=== PATIENT | male | born 1940 | race Caucasian/White ===

== ENCOUNTER 2017-10-25 11:16 | Inpatient (IN) | payer MEDICARE, BC ==
[~2017-10-25] VITALS: Ht 180.3 cm; Wt 88.2 kg
--- NOTE | ~2017-10-25 | OP ---
PATIENT NAME: KEN PEÑALOZA MEDICAL RECORD: [id number] :40 LOCATION:[place] D.CV08 ADMISSION DATE:10/25/17 SURGEON: PAUL WILLIAM MD DATE OF OPERATION: 10/30/2017 SURGEON: Paul William MD ANESTHESIA: General endotracheal, Dashawn Rocha MD OPERATION PERFORMED: Coronary artery bypass; 1. Left internal thoracic to left anterior descending. 2. Reverse saphenous vein graft to the obtuse marginal coronary artery. PREOPERATIVE DIAGNOSIS: Cardiac arrest secondary to atherosclerosis of the coronary arteries. POSTOPERATIVE DIAGNOSIS: Cardiac arrest secondary to atherosclerosis of the coronary arteries. INDICATION FOR OPERATION: Severe occlusive coronary artery disease with cardiac arrest. FINDINGS OF THE OPERATION: The right greater saphenous vein graft in the thigh was of excellent quality for grafting as was the left internal thoracic artery. The target vessels were also of good caliber. ESTIMATED BLOOD LOSS: Cell Saver was used. DESCRIPTION OF PROCEDURE: After informed consent, adequate preoperative medication, and evaluation, the patient was brought to the operating room and placed on the table in supine position. After induction of general endotracheal anesthesia and application of appropriate monitoring devices, the chest, neck, abdomen, and both legs were prepped and draped in sterile field utilizing Betadine scrub, alcohol, and Betadine solution. Betadine-impregnated drape was also used. Saphenous vein was harvested from right leg and prepared for reverse saphenous vein grafting. Leg was closed over drains utilizing 3-0 Vicryl and skin renetta. A median sternotomy incision was used and dissection was carried down to the fascia. Hemostasis was maintained with electrocautery. Sternum was divided. Innominate vein was identified and protected. Left internal thoracic was taken down and prepared for grafting. The patient was given a calculated dose of heparin, cannulated in standard fashion utilizing one aortic and one two-stage cannula in atrium and inferior vena cava. The patient was then placed on cardiopulmonary bypass and cooled to 32 degrees centigrade. A crossclamp was placed just proximal to the aortic cannula. The patient was given cardioplegic solution through the aortic root. The patient was given cold induction and cold maintenance; and given cold intermittent cardioplegic solution throughout the procedure, either through the grafts, the root, or combination of both. The first vessel to be grafted was obtuse marginal. It was grafted end-to-side utilizing a running 7-0 Prolene suture. Graft was measured back to the aorta and a proximal anastomosis was fashioned utilizing running 6-0 Prolene suture. Next, left internal thoracic was brought the hole in pericardium, sutured to left anterior descending end-to-side utilizing a running 8-0 Prolene suture. Pedicle was attached to the epicardium with 6-0 Prolene suture. All maneuvers to remove trapped air were performed. The patient was given warm cardioplegic OPERATIVE REPORT [id number] KEN PEÑALOZA reperfusion and controlled reperfusion. The patient was rewarmed to 37 degrees centigrade. Two atrial and two ventricular pacing wires were placed on the heart and brought out through the epigastric area. The patient was weaned from cardiopulmonary bypass. After being stable off bypass, he was given calculated dose of protamine to reverse the heparin. Hemostasis was achieved. A #40 right angle and a #36 chest tubes were brought in through the epigastric area and placed in the mediastinum. A separate left pleural tube was connected to a suction bulb. The chest was irrigated. Instrument count and sponge count were correct times 2. Chest was closed in layers utilizing #7 wire on the sternum, #2 Vicryl on linea alba and pectoralis fascia. Subcutaneous tissue was approximated with 3-0 Vicryl and skin was approximated with 3-0 subcuticular Vicryl. Sterile dressings were applied. The patient tolerated the procedure well and transferred to the CV ICU in satisfactory condition. TRANSINT:[id number] Voice Confirmation ID: [id number] DOCUMENT ID: [id number] PAUL WILLIAM MD at 1619 CC: [id number] DICTATION DATE: 10/30/17 1444 OTORHINOLARYNGOLOGIST: 10/30/17 1547 ADM IN [facility] [address] [id number]
--- NOTE | ~2017-10-25 | CN ---
PATIENT NAME:KEN PEÑALOZA MEDICAL RECORD: [id number] : 40 LOCATION:[place] ADMIT DATE: 10/25/17 ACCOUNT: [id number] CONSULTING PHYSICIAN: REFUGIO SANCHEZ DO REFERRING PHYSICIAN: MEHRAN SOSA M.D. DATE OF CONSULTATION: 10/31/2017 CONSULT FROM: Dr. William, vascular surgery. REASON FOR CONSULTATION: Medical management, hypertension. HISTORY OF PRESENT ILLNESS: The patient is admitted for multivessel vascular disease. He is status post CABG, doing well. Again, consult for medical management. HOME MEDICATIONS: Lisinopril 20 mg daily, pravastatin 20 mg daily, aspirin 81 mg daily. ALLERGIES: No known drug allergies. FAMILY HISTORY: Significant for cancer and hypertension. SOCIAL HISTORY: Denies alcohol or tobacco. No illicit drug use. REVIEW OF SYSTEMS: The patient had his chest tubes out and he is feeling much better. Does admit generalized weakness status post surgery. He is up to the chair. Denies shortness of breath. Denies dysuria. Denies any nausea or vomiting. PHYSICAL EXAMINATION: VITAL SIGNS: Temperature 99.9, blood pressure 127/55, heart rate 77, respirations 18, O2 saturations 91% with supplemental oxygen, oxymizer. HEENT: Normocephalic, atraumatic. Eyes: Pupils are equally round and reactive. Ears: Canals patent, TMs are intact. Nose: Nares patent without drainage. Throat: No erythema, no exudates. NECK: Supple. No lymphadenopathy, no JVD. HEART: Regular rate and rhythm. Surgical wound clean, dry and intact. LUNGS: Breathing is nonlabored with oxymizer. ABDOMEN: Soft. EXTREMITIES: Present times 4, no edema. NEUROLOGIC: Intact. SKIN: Warm and dry. No rash. LABORATORY DATA: ABG shows a pH of 7.377, pCO2 of 39.7, pO2 of 56, bicarbonate 23.3. CBC: White count 11.9, hemoglobin 10.2, hematocrit 29.7, platelets 136. Chemistry shows a sodium of 142, potassium 4.9, chloride 109, bicarbonate 27.3, BUN 32, creatinine 1.9. Chest x-ray: Interval removal of endotracheal and enteric tubes, stable position of the remaining of the support devices, bibasilar airspace disease with small left pleural effusion. ASSESSMENT AND PLAN: 1. Status post cardiopulmonary arrest, status post CABG. Continue supportive care. 2. Hypertension. Hold medications until the patient further stabilized and progressive. Restart medicines as indicated. Monitor electrolytes, kidney CONSULT REPORT [id number] KEN PEÑALOZA function and H&H. Appreciate this consult. We will follow accordingly. TRANSINT:[id number] Voice Confirmation ID: [id number] DOCUMENT ID: [id number] REFUGIO SANCHEZ DO at 0802 CC: [id number] DICTATION DATE: 10/31/171707 TELEPHONE OPERATOR: 10/31/17 1835 ADM IN [facility] [address] [id number]
--- NOTE | ~2017-10-25 | TEE ---
PATIENT:KEN PEÑALOZA MEDICAL RECORD: [id number] LOCATION:[place] [address] AGE OF PATIENT: 77 ADMISSION DATE: 10/25/17 SEX: M REFERRING PHYSICIAN: INTERPRETING PHYSICIAN: ANNA WEBB MD TRANSESOPHAGEAL ECHOCARDIOGRAM Date: 10/30/17 BRANDON CHARGE Y INDICATIONS: CABG PREMEDICATIONS: PATIENT'S RESPONSE PROCEDURE DOPPLER MEASUREMENTS: LVIT LA PA 82.0 RA LVOT 111 RVOT 57.0 Asc. Ao 149 AV Gradient Peak 8.9 AV Mean 4.5 AV Area 2.1 MV Gradient Peak 5.7 MV Mean 1.7 MV Area INTERPRETATION: Doppler: 2-D: EF 60% COLOR FLOW DOPPLER MILD +, TRACE PI NORMAL SALINE STUDY: MISCELLANOUS: DIAGNOSIS: PLAN: [facility] Director:1 Dr. Webb Electrician Supervisor Substation: Thuan MONIQUE COMMENTS: ROGE PATIENT DATE OF SERVICE: 10/30/2017 PROCEDURE: Transesophageal echo evaluation of valvular structures during bypass surgery. FINDINGS: 1. Left ventricular chamber size is within normal limits. Left ventricular systolic function is normal. Overall ejection fraction estimated at 60%. 2. Left atrium, right atrium, and right ventricle chamber sizes are within TRANSESOPHAGEAL ECHOCARDIOGRAM REPORT [id number] KEN PEÑALOZA normal limits. 3. Valvular structures have normal structure and motion. 4. Doppler interrogation only reveals mild mitral regurgitation, no other valvular insufficiency or stenosis. 5. No evidence of pericardial effusion or left ventricular thrombus. TRANSINT:[id number] Voice Confirmation ID: [id number] DOCUMENT ID: [id number] at 1325 CC: [id number] DICTATION DATE: 10/31/17 1052 DIRECTOR OF CATH LAB: 10/31/17 1217 ADM IN [place] [id number] [place] [address]
--- NOTE | ~2017-10-25 | HEMODYNAMI ---
PATIENT:KEN PEÑALOZA MEDICAL RECORD: [id number] : 40 LOCATION:[place] [address] ADMISSION DATE: 10/25/17 Generatedon:10/27/20178:56 Patient name: KEN PEÑALOZA Patient #: [id number] SSN: : 1940 Date of study: 10/27/2017 Page: Of Hemodynamic Procedure Report Patient Data Patient Demographics Procedure consent was obtained First Name: KEN Gender: Male Last Name: JH : 1940 Patient #: [id number] Age: 77 year(s) Race: Unknown Additional ID: [id number] Contact details [address]: [address] [place] [address] State: [place] City: [place] Zip code: [address] Past Medical History Allergies: No known allergies Admission Admission Data Admission Date: 10/25/2017 Admission Time: 13:50 Room #: [facility] Procedure Procedure Types Cath Procedure Diagnostic Procedure LHC LHC w/Coronaries Sedation Charges Moderate Sedation up to 15 minutes Procedure Description Procedure Date Procedure Date: 10/27/2017 Procedure Start Time: 8:32 Procedure End Time: 8:52 Procedure Staff Name Function Jesse Peterson MD Performing Physician Everardo Bentley RN Nurse Eva Casiano RT Scrub Brandi Quijano RT Monitor Procedure Data Cath Procedure Fluoroscopy Diagnostic fluoroscopy Total fluoroscopy Time: 4.3 time: 4.3 min min Diagnostic fluoroscopy Total fluoroscopy dose: 715 dose: 715 mGy mGy Contrast Material Contrast Material Type Amount (ml) Isovue 300 103 Entry Location Entry Primary Successful Side Size Upsize Upsize Entry Closure Succes sful Closure Location (Fr) 1 (Fr) 2 (Fr) Remarks Device Remarks Femoral Right 5 Fr Exoseal artery Estimated blood loss: 5 ml Diagnostic catheters Device Type Used For End Catheter Placement MULTIPACK JL 4.0 5Fr Left Coronary catheter Angiography DIAGNOSTIC JL 5 5Fr Left Coronary catheter ([id number]) Angiography MULTIPACK 3DRC 5Fr Right Coronary catheter Angiography MULTIPACK Pigtail 5 Fr LV Angiography catheter DIAGNOSTIC IM 5Fr Multi-vessel catheter ([id number]) Angiography Procedure Complications No complications Procedure Medications Medication Administration Route Dosage 0.9% NaCl I.V. 100 ml/hr Oxygen etCO2 Nasal cannula 2 l/min Heparin Flush Bag added to field 2 bags (1000units/500ml NS) Lidocaine 2% added to field 20 Versed I.V. 2 mg Fentanyl I.V. 50 mcg Hemodynamics Rest Heart Rate: 70 (bpm) Pressure Samples Time Site Value (mmHg) Purpose Heart Use Rate(bpm) 8:46 LV 149/-2,28 Snapshot 65 8:47 AO 143/68(100) Pullback 62 8:47 LV 130/1,26 Pullback 62 Gradients Valve Time Site 1 Site 2 Mean SEP/DFP Peak To Heart Use (mmHg) (sec/min) Peak Rate (mmHg) (bpm) Aortic 8:47 LV AO 0 4 0 62 130/1,26 143/68(100) Calculations Valve P-P Mean Valve Index Valve Source Name Gradient Area Flow (cm2) Aortic 0 0 0 0 Snapshots Pre Cath Intra NCS Post Cath Vital Signs Time Heart Resp SPO2 etCO2 NIBP (mmHg) Rhythm Pain Sedation Rate (ipm) (%) (mmHg) Status Level (bpm) 8:21:51 67 15 95 0 178/88(155) NSR 0 (11) 10(A) , No pain 8:27:08 68 17 95 18.7 166/92(147) NSR 0 (11) 10(A) , No pain 8:32:28 63 18 92 18.7 159/79(124) NSR 0 (11) 10(A) , No pain 8:37:49 64 20 92 23.2 149/79(117) NSR 0 (11) 10(A) , No pain 8:42:59 65 18 92 18.7 148/81(118) NSR 0 (11) 10(A) , No pain 8:48:08 62 17 94 19.5 148/78(108) NSR 0 (11) 9(A) , No pain 8:53:19 62 18 89 0.7 146/73(111) NSR 0 (11) 9(A) , No pain Medications Time Medication Route Dose Verified Delivered Reason Notes Effe ctiveness by by 8:27:28 0.9% NaCl I.V. 100 Everardo Mcgee Per ml/hr Sheree Bentley physician RN RN 8:27:38 Oxygen etCO2 2 Everardo Everardo Per Nasal l/min Sheree Bentley physician cannula RN RN 8:27:53 Heparin Flush added 2 Everardo Everardo used for Bag to bags Lorigan Sheree procedure (1000units/500ml field RN RN NS) 8:28:04 Lidocaine 2% added 20ml Everardo Everardo for local to vial Lorigan Lorigan anesthetic field RN RN 8:34:33 Versed I.V. 2 mg Everardo Everardo for Lorigan Lorigan sedation RN RN 8:34:41 Fentanyl I.V. 50 Everardo Everardo for mcg Lorigan Lorigan sedation RN physical fitness teacher Log Time Note 8:04:26 Time tracking: Regular hours (M-F 7:00 - 5:00) 8:04:30 Plan of Care:Hemodynamics will remain stable., Cardiac rhythm will remain stable., Comfort level will be maintained., Respiratory function will remain adequate., Patient/ family verbilizes understanding of procedure., Procedure tolerated without complication., Recovers from procedure without complications.. 8:05:02 Eva Counts RT(R) sent for patient. Start room use. 8:15:37 Patient received from Med II to CCL 1 Alert and oriented. Tansferred to table in Supine position. 8:15:39 Warm blankets applied, and everette hugger turned on for patient comfort. 8:15:39 Correct patient and procedure confirmed by team. 8:15:40 Signed procedure consent form obtained from patient. 8:15:42 ECG and BP/O2 sat monitors applied to patient. 8:20:33 Vital chart was started 8:21:35 Pre-procedure instructions explained to patient. 8:21:35 Pre-op teaching completed and patient verbalized understanding. 8:21:39 Family in patients room. 8:21:40 Patient NPO since Midnight. 8:21:45 Patient allergic to No known allergies 8:21:47 Is the patient allergic to Iodine/contrast media? No. 8:21:49 Is patient on blood thinner?No 8:21:50 Patient diabetic? No. 8:21:57 Previous problem with sedation/anesthesia? No ? 8:21:59 Snore? Yes 8:22:00 Sleep apnea? No 8:22:01 Deviated septum? No 8:22:02 Opens mouth fully? Yes 8:22:03 Sticks out tongue? Yes 8:22:05 Airway obstruction? No ? 8:22:08 Dentures? Yes ? 8:22:13 Baseline sample Acquired. 8:22:17 Rhythm: sinus rhythm 8:22:18 Full Disclosure recording started 8:22:23 H&P Date Dictated: 10/27/2017 Within 30 days and on chart.. 8:22:28 Pre procedure: right dorsailis pedis pulse 2+ Normal; easily identifiable; not easily obliterated 8:22:43 UNABLE TO GO RADIAL DUE TO IV PLACEMENT 8:23:06 Patient pain scale 0/10 ?. 8:23:13 IV patent on arrival in left antecubital with 0.9% NaCl at [facility]. 8:23:15 Lab results completed and on chart. 8:23:21 Right groin area was prepped with chlora-prep and draped in sterile fashion 8:23:22 Alarms reviewed by R. N. 8:23:23 Sharps counted by scrub and verified by R.N. 8:25:12 Physician arrived 8:25:12 --------ALL STOP TIME OUT------ 8:25:13 Final Timeout: patient, procedure, and site verified with staff and physician. All members of the team are in agreement. 8:25:14 Right groin site verified by team. 8:25:17 Physical assessment completed. ASA score P 2 - A patient with mild systemic disease as per Jesse Peterson MD. 8:25:22 Sedation plan: IV Moderate Sedation Medication:Versed, Fentanyl 8:25:30 Use device set Femoral Dx 8:25:31 ACIST Syringe (53778) opened to sterile field. 8:25:31 Bag Decanter (2002) opened to sterile field. 8:25:32 Medline Cath Pack ([id number]) opened to sterile field. 8:25:33 DIAGNOSTIC WIRE .035 260cm J wire (367423) opened to sterile field. 8:25:34 ACIST Hand Control (82292) opened to sterile field. 8:25:35 ACIST Manifold (92700) opened to sterile field. 8:25:35 DIAGNOSTIC Multipack 5Fr catheter set ([id number]) opened to sterile field. 8:25:36 Tegaderm 4 x 4 (1626W) opened to sterile field. 8:25:37 SHEATH Prelude 5Fr 0.035 (WRP-1O-89-035) opened to sterile field. 8:27:28 0.9% NaCl 100 ml/hr I.V. was administered by Everardo Bentley RN; Per physician; 8:27:38 Oxygen 2 l/min etCO2 Nasal cannula was administered by Everardo Bentley RN; Per physician; 8:27:53 Heparin Flush Bag (1000units/500ml NS) 2 bags added to field was administered by Everardo Bentley RN; used for procedure; 8:28:04 Lidocaine 2% 20ml vial added to field was administered by Everardo Bentley RN; for local anesthetic; 8:32:41 Procedure started. 8:32:45 Local anesthetic to right femoral artery with Lidocaine 2% by Jesse Peterson MD.INITIAL ACCESS ONLY 8:34:02 A 5 Fr sheath was inserted into the Right Femoral artery 8:34:33 Versed 2 mg I.V. was administered by Everardo Bentley RN; for sedation; 8:34:39 A MULTIPACK JL 4.0 5Fr catheter was advanced over the wire and used for Left Coronary Angiography. 8:34:41 Fentanyl 50 mcg I.V. was administered by Everardo Bentley RN; for sedation; 8:37:33 Catheter removed. unable to cannulate vessel. 8:37:47 A DIAGNOSTIC JL 5 5Fr catheter ([id number]) was advanced over the wire and used for Left Coronary Angiography. 8:39:02 LCA angiography performed. 8:39:05 Injector settings: Ml/sec: 3, Volume: 6, 8:41:09 Catheter removed. 8:41:17 A MULTIPACK 3DRC 5Fr catheter was advanced over the wire and used for Right Coronary Angiography. 8:42:41 RCA angiography performed. 8:43:19 Injector settings: Ml/sec: 3, Volume: 6, 8:43:23 Catheter removed. 8:43:32 GUIDE 5FR AL 1.0 catheter ([id number]) opened to sterile field. 8:44:17 5 Fr AL 1 guide catheter was inserted over the wire 8:44:23 RCA angiography performed. 8:44:25 Injector settings: Ml/sec: 3, Volume: 6, 8:45:12 Catheter removed. 8:45:44 A MULTIPACK Pigtail 5 Fr catheter was advanced over the wire and used for LV Angiography. 8:46:36 LV hemodynamics recorded. 8:46:37 LV gram done using LOCKETT 8:46:40 Injector settings: Ml/sec: 5, Volume: 15, 8:46:50 EF : 50 % 8:47:43 A DIAGNOSTIC IM 5Fr catheter ([id number]) was advanced over the wire and used for Multi-vessel Angiography. 8:50:01 BONILLA angiography performed. 8:50:03 Injector settings: Ml/sec: 3, Volume: 6, 8:50:06 Catheter removed. 8:50:24 EXOSEAL 5Fr (EX500) opened to sterile field. 8:50:50 Sheath removed intact; hemostasis achieved with Exoseal to the Right Femoral artery. 8:51:03 Procedure ended.(Physican Out) 8:51:28 Fluoroscopy time 04.30 minutes. 8:51:33 Fluoroscopy dose: 715 mGy 8:51:33 Flurop Dose total: 715 8:51:37 Contrast amount:Isovue 300 103ml. 8:51:45 Sharps counted by scrub and verified by R.N. 8:51:46 Insertion/operative site no bleeding no hematoma. 8:51:49 Post-op/insertion site Right Femoral artery dressed using a 4 x 4 and Tegaderm. 8:51:52 Post right femoral artery:stable 8:51:54 Post Procedure Pulses reassessed and unchanged 8:51:57 Post procedure rhythm: unchanged. 8:52:00 Estimated blood loss: 5 ml 8:52:02 Post procedure instruction explained to patient.Patient verbalizes understanding. 8:52:03 Patient needs reinforcement of post procedure teaching. 8:52:13 Procedure type changed to Cath procedure, Diagnostic procedure, LHC, LHC w/Coronaries, Sedation Charges, Moderate Sedation up to 15 minutes 8:52:14 Procedure and supply charges have been captured, reviewed, submitted and are correct. 8:52:19 Procedure Complication : No complications 8:52:21 Vital chart was stopped 8:52:22 See physician's report for complete and final results. 8:52:26 Report given to [facility]. 8:52:29 Patient transfered to Med II with Stretcher. 8:52:31 Procedure ended. 8:52:31 Full Disclosure recording stopped 8:52:36 End room use (Document Last) Device Usage Item Name Manufacture Quantity Catalog Number Hospital Part Current M inimal Lot# / Charge Number Stock Stock Serial# Code ACIST Syringe Acist 1 53794 131974 456841 583479 2 0 (20688) [employer] Bag Decanter Microtek 1 [id number] 330605 68014 919466 5 () Medical Inc. Medline Cath Cardinal 1 [id number] 898109 70405 275392 5 Pack Health ([id number]) DIAGNOSTIC WIRE [facility] [employer] 1 866246 481499 188971 931295 3 0 .035 260cm J wire (465186) ACIST Hand Acist 1 79463 098377 975038 260997 5 Control (42128) [employer] ACIST Manifold Acist 1 29413 311139 547897 537238 5 (86407) [employer] Inc DIAGNOSTIC Cardinal 1 [id number] 485750 62596 965547 3 0 Multipack 5Fr Health catheter set (PM5822) Tegaderm 4 x 4 3M 1 1626W 473045 169703 178274 5 (1626W) SHEATH Prelude Merit 1 [id number]-8H-54-035 884932 682178 616106 5 5Fr 0.035 Medical (TVV-4R-16-035) MULTIPACK JL Cardinal 1 329861 5 4.0 5Fr Health catheter DIAGNOSTIC JL 5 Cardinal 1 [id number] 158211 411836 420123 5 5Fr catheter Health ([id number]) MULTIPACK 3DRC Cardinal 1 452808 5 5Fr catheter Health GUIDE 5FR AL Medtronic 1 [id number] 163387 939327 863324 1 1.0 catheter ([id number]) MULTIPACK Cardinal 1 066212 5 Pigtail 5 Fr Health catheter DIAGNOSTIC IM Cardinal 1 [id number] 956136 189921 863018 5 5Fr catheter Health (551562F) EXOSEAL 5Fr Cardinal 1 EX500 932624 126036 134337 1 0 (EX500) Health Signature Audit [place] Stage Time Signature Unsigned Intra-Procedure 10/27/2017 Brandi Quijano 8:56:21 AM RT(R) Signatures Monitor : Brandi Quijano RT Signature : Date : Time : [address] [place] [address]
[2017-10-25 11:50] VITALS: BP 139/63
[2017-10-25 12:04] LABS: BASOPHILS 0.5 % (0-2); EOSINOPHILS 0.1 % (0-7); HEMATOCRIT 39.9 % (42.0-54.0); HEMOGLOBIN 13.5 g/dL (13.5-17.5); IMMATURE GRANULOCYTES 0.5 % (0-5); LYMPHOCYTES 8.3 % (15-50); MCHC 33.8 g/dL (31.0-37.0); MCV 94.5 fL (80.0-100.0); MEAN PLATELET VOLUME 9.9 fL (7.4-10.4); MONOCYTES 4.4 % (2-11); NEUTROPHILS 86.2 % (40-80); PLATELET COUNT 203 10x3/uL (130-400); RBC 4.22 10x6/uL (4.20-6.10); RDW 11.8 % (11.5-14.5); WBC 8.6 10x3/uL (4.8-10.8)
[2017-10-25 12:08] VITALS: BP 131/73
[2017-10-25 12:45] LABS: ALBUMIN 3.6 g/dL (3.4-5.0); ALKALINE PHOSPHATASE 67 U/L (46-116); ALT (SGPT) 62 U/L (10-68); BILIRUBIN - TOTAL 0.41 mg/dL (0.2-1.3); CALC OSMOLALITY 282 mosm/kg (275-300); CALCIUM 8.6 mg/dL (8.5-10.1); CARBON DIOXIDE 23.4 mmol/L (21.0-32.0); CHLORIDE - SERUM 107 mmol/L (98-107); CREATININE - SERUM 1.7 mg/dL (0.6-1.3); GLUCOSE 155 mg/dL (74-106); POTASSIUM - SERUM 4.2 mmol/L (3.5-5.1); PROTEIN - SERUM 6.4 g/dL (6.4-8.2); SODIUM 138 mmol/L (136-145); UREA NITROGEN 25 mg/dL (7-18); eGFR NON AFRICAN AMERICAN 42 mL/min (90-120)
[2017-10-25 12:56] LABS: CKMB 2.7 U/L (0.0-3.6); CREATINE KINASE 154 UL (21-232); TROPONIN-I < 0.017 ng/mL (0.000-0.060)
[2017-10-25 13:37] VITALS: BP 154/77
[2017-10-25 14:08] VITALS: BP 144/82
[2017-10-25] MEDS ORDERED: PRAVACHOL20 MG PO (14:35)
[2017-10-25] MEDS ORDERED: PRINIVIL20 MG PO (14:35)
[2017-10-25] MEDS ORDERED: BAYER CHEWABLE81 MG PO (14:36)
[2017-10-25] MEDS ORDERED: FOLBIC RF TABL1 EACH PO (14:36)
[2017-10-25 14:55] VITALS: BP 159/75; BMI 26.2
[2017-10-25 20:51] VITALS: BP 123/62
[2017-10-26 00:37] VITALS: BP 137/71
[2017-10-26 04:50] LABS: BASOPHILS 0.1 % (0-2); EOSINOPHILS 0.3 % (0-7); HEMATOCRIT 36.9 % (42.0-54.0); HEMOGLOBIN 12.5 g/dL (13.5-17.5); IMMATURE GRANULOCYTES 0.1 % (0-5); MCH 32.1 pg (26.0-34.0); MCHC 33.9 g/dL (31.0-37.0); MCV 94.6 fL (80.0-100.0); MONOCYTES 5.9 % (2-11); NEUTROPHILS 79.6 % (40-80); PLATELET COUNT 183 10x3/uL (130-400); RDW 11.9 % (11.5-14.5); WBC 8.8 10x3/uL (4.8-10.8)
[2017-10-26 05:05] LABS: INR 1.05 (0.85-1.17); PROTIME 13.4 SECONDS (11.6-15.0)
[2017-10-26 05:12] LABS: ANION GAP 11.2 mmol/L (8-16); CALCIUM 8.6 mg/dL (8.5-10.1); CARBON DIOXIDE 25.3 mmol/L (21.0-32.0); CREATININE - SERUM 1.4 mg/dL (0.6-1.3); POTASSIUM - SERUM 4.5 mmol/L (3.5-5.1)
[2017-10-26 06:06] VITALS: BP 130/65
[2017-10-26 08:48] VITALS: BP 132/66
[2017-10-26 11:58] VITALS: BP 139/64
[2017-10-26 17:09] VITALS: BP 137/69
[2017-10-26 20:30] VITALS: BP 160/64
[2017-10-27 00:30] VITALS: BP 153/72
[2017-10-27 04:30] VITALS: BP 132/77
[2017-10-27 09:26] LABS: BASOPHILS 0.3 % (0-2); EOSINOPHILS 0.5 % (0-7); HEMATOCRIT 35.6 % (42.0-54.0); HEMOGLOBIN 12.1 g/dL (13.5-17.5); IMMATURE GRANULOCYTES 0.1 % (0-5); LYMPHOCYTES 14.4 % (15-50); MCH 32.3 pg (26.0-34.0); MCV 94.9 fL (80.0-100.0); MEAN PLATELET VOLUME 9.7 fL (7.4-10.4); MONOCYTES 6.7 % (2-11); PLATELET COUNT 171 10x3/uL (130-400); RBC 3.75 10x6/uL (4.20-6.10); WBC 7.6 10x3/uL (4.8-10.8)
[2017-10-27 09:41] LABS: ANION GAP 9.3 mmol/L (8-16); CARBON DIOXIDE 26.3 mmol/L (21.0-32.0); CREATININE - SERUM 1.5 mg/dL (0.6-1.3); POTASSIUM - SERUM 4.6 mmol/L (3.5-5.1)
[2017-10-27 13:30] VITALS: BP 140/79
[2017-10-27 17:09] VITALS: BP 174/81
[2017-10-27 20:00] VITALS: BP 156/75
[2017-10-28] VITALS: BP 129/66
[2017-10-28 04:00] VITALS: BP 178/73
[2017-10-28 08:21] VITALS: BP 155/76
[2017-10-28 11:14] LABS: HEPATITIS C ANTIBODY 0.1 (0.0-0.9)
[2017-10-28 11:47] VITALS: BP 167/96
[2017-10-28 13:08] LABS: BASOPHILS 0.5 % (0-2); EOSINOPHILS 1.7 % (0-7); HEMATOCRIT 37.4 % (42.0-54.0); HEMOGLOBIN 12.9 g/dL (13.5-17.5); IMMATURE GRANULOCYTES 0.3 % (0-5); LYMPHOCYTES 17.9 % (15-50); MCH 32.3 pg (26.0-34.0); MCHC 34.5 g/dL (31.0-37.0); MCV 93.5 fL (80.0-100.0); MEAN PLATELET VOLUME 9.9 fL (7.4-10.4); MONOCYTES 6.5 % (2-11); NEUTROPHILS 73.1 % (40-80); PLATELET COUNT 204 10x3/uL (130-400); RDW 11.8 % (11.5-14.5); WBC 6.7 10x3/uL (4.8-10.8)
[2017-10-28 13:13] LABS: APTT 34.9 SECONDS (22.8-39.4); INR 1.03 (0.85-1.17); PROTIME 13.1 SECONDS (11.6-15.0)
[2017-10-28 13:35] LABS: ALBUMIN 3.2 g/dL (3.4-5.0); ANION GAP 10.6 mmol/L (8-16); BILIRUBIN - TOTAL 0.7 mg/dL (0.2-1.3); CALCIUM 8.9 mg/dL (8.5-10.1); CARBON DIOXIDE 28.6 mmol/L (21.0-32.0); CREATININE - SERUM 1.6 mg/dL (0.6-1.3); PHOSPHOROUS 3.5 mg/dL (2.5-4.9); POTASSIUM - SERUM 4.2 mmol/L (3.5-5.1); PROTEIN - SERUM 6.7 g/dL (6.4-8.2); T4 THYROXIN - FREE 0.86 ng/dL (0.76-1.46); URIC ACID 5.7 mg/dL (2.6-7.2)
[2017-10-28 16:30] VITALS: BP 110/71
[2017-10-28 20:49] VITALS: BP 136/67
[2017-10-29 00:04] LABS: APPEARANCE CLEAR (CLEAR); BILIRUBIN NEGATIVE (NEGATIVE); COLOR YELLOW (YELLOW); GLUCOSE NEGATIVE (NEGATIVE); KETONE NEGATIVE (NEGATIVE); NITRITE NEGATIVE (NEGATIVE); PROTEIN NEGATIVE (NEGATIVE); UROBILINOGEN NORMAL (NORMAL)
[2017-10-29 00:35] VITALS: BP 132/72
[2017-10-29 05:15] VITALS: BP 145/70
[2017-10-29 08:49] VITALS: BP 123/68
[2017-10-29 11:16] VITALS: BP 104/78
[2017-10-29 20:21] VITALS: BP 138/75
[2017-10-30] VITALS (35 sets, daily range): BP systolic 95–133; BP diastolic 48–80; Ht 180.3 cm; Wt 88.2 kg
[2017-10-30 08:04] LABS: PLT FUNCT.(P2Y12) PLAVIX 229 PRU (194-418)
[2017-10-30 13:48] LABS: HEMATOCRIT 27.8 % (42.0-54.0); HEMOGLOBIN 9.6 g/dL (13.5-17.5); MCH 31.8 pg (26.0-34.0); MCHC 34.5 g/dL (31.0-37.0); MCV 92.1 fL (80.0-100.0); MEAN PLATELET VOLUME 9.8 fL (7.4-10.4); RBC 3.02 10x6/uL (4.20-6.10); RDW 11.8 % (11.5-14.5); WBC 13.5 10x3/uL (4.8-10.8)
[2017-10-30 14:07] LABS: ANION GAP 10.8 mmol/L (8-16); CALCIUM 7.3 mg/dL (8.5-10.1); CREATININE - SERUM 1.2 mg/dL (0.6-1.3); POTASSIUM - SERUM 4.8 mmol/L (3.5-5.1)
[2017-10-30 14:15] LABS: APTT 51.6 SECONDS (22.8-39.4); INR 1.35 (0.85-1.17); PROTIME 16.2 SECONDS (11.6-15.0)
[2017-10-31] VITALS (68 sets, daily range): BP systolic 70–139; BP diastolic 38–65
[2017-10-31 05:39] LABS: HEMATOCRIT 29.7 % (42.0-54.0); HEMOGLOBIN 10.2 g/dL (13.5-17.5); MCH 31.8 pg (26.0-34.0); MCHC 34.3 g/dL (31.0-37.0); MCV 92.5 fL (80.0-100.0); MEAN PLATELET VOLUME 9.9 fL (7.4-10.4); RBC 3.21 10x6/uL (4.20-6.10); WBC 11.9 10x3/uL (4.8-10.8)
[2017-10-31 06:31] LABS: ALBUMIN 2.7 g/dL (3.4-5.0); ANION GAP 10.6 mmol/L (8-16); BILIRUBIN - TOTAL 0.68 mg/dL (0.2-1.3); CALCIUM 8.1 mg/dL (8.5-10.1); CARBON DIOXIDE 27.3 mmol/L (21.0-32.0); POTASSIUM - SERUM 4.9 mmol/L (3.5-5.1); PROTEIN - SERUM 5.1 g/dL (6.4-8.2)
[2017-10-31 06:32] LABS: CREATININE - SERUM 1.9 mg/dL (0.6-1.3)
[2017-11-01] VITALS (24 sets, daily range): BP systolic 96–136; BP diastolic 44–61
[2017-11-01 05:47] LABS: MCH 31.9 pg (26.0-34.0); MCHC 34.2 g/dL (31.0-37.0); MCV 93.3 fL (80.0-100.0); MEAN PLATELET VOLUME 10.3 fL (7.4-10.4); RDW 12.5 % (11.5-14.5); WBC 12.8 10x3/uL (4.8-10.8)
[2017-11-01 06:09] LABS: ANION GAP 12.1 mmol/L (8-16); BILIRUBIN - TOTAL 0.86 mg/dL (0.2-1.3); CALCIUM 8.4 mg/dL (8.5-10.1); CARBON DIOXIDE 27.6 mmol/L (21.0-32.0); POTASSIUM - SERUM 4.7 mmol/L (3.5-5.1); PROTEIN - SERUM 5.8 g/dL (6.4-8.2)
[2017-11-01 06:44] LABS: ALBUMIN 3.4 g/dL (3.4-5.0); CREATININE - SERUM 3.3 mg/dL (0.6-1.3)
[2017-11-01 06:57] LABS: HEMATOCRIT 23.7 % (42.0-54.0); HEMOGLOBIN 8.1 g/dL (13.5-17.5); RBC 2.54 10x6/uL (4.20-6.10)
[2017-11-02] VITALS (24 sets, daily range): BP systolic 98–133; BP diastolic 41–62
[2017-11-02 05:25] LABS: HEMATOCRIT 23.4 % (42.0-54.0); HEMOGLOBIN 7.9 g/dL (13.5-17.5); MCH 31.6 pg (26.0-34.0); MCHC 33.8 g/dL (31.0-37.0); MCV 93.6 fL (80.0-100.0); MEAN PLATELET VOLUME 10.6 fL (7.4-10.4); RBC 2.5 10x6/uL (4.20-6.10); RDW 12.5 % (11.5-14.5)
[2017-11-02 05:28] LABS: WBC 9.5 10x3/uL (4.8-10.8)
[2017-11-02 05:45] LABS: BILIRUBIN - TOTAL 0.84 mg/dL (0.2-1.3); CALCIUM 7.9 mg/dL (8.5-10.1); CARBON DIOXIDE 27.1 mmol/L (21.0-32.0); CREATININE - SERUM 3.1 mg/dL (0.6-1.3); POTASSIUM - SERUM 4.1 mmol/L (3.5-5.1); PROTEIN - SERUM 5.7 g/dL (6.4-8.2)
[2017-11-03] VITALS (23 sets, daily range): BP systolic 111–148; BP diastolic 46–77
[2017-11-03 07:03] LABS: HEMATOCRIT 23.3 % (42.0-54.0); HEMOGLOBIN 7.8 g/dL (13.5-17.5); MCH 31.3 pg (26.0-34.0); MCHC 33.5 g/dL (31.0-37.0); MCV 93.6 fL (80.0-100.0); MEAN PLATELET VOLUME 10.3 fL (7.4-10.4); RBC 2.49 10x6/uL (4.20-6.10); RDW 12.3 % (11.5-14.5); WBC 8.9 10x3/uL (4.8-10.8)
[2017-11-03 07:26] LABS: ALBUMIN 2.7 g/dL (3.4-5.0); BILIRUBIN - TOTAL 0.89 mg/dL (0.2-1.3); CALCIUM 7.5 mg/dL (8.5-10.1); CARBON DIOXIDE 28.9 mmol/L (21.0-32.0); CREATININE - SERUM 2.4 mg/dL (0.6-1.3); POTASSIUM - SERUM 3.9 mmol/L (3.5-5.1); PROTEIN - SERUM 5.6 g/dL (6.4-8.2)
[2017-11-04] VITALS (24 sets, daily range): BP systolic 118–150; BP diastolic 43–68
[2017-11-04 06:29] LABS: HEMOGLOBIN 7.7 g/dL (13.5-17.5); MCH 31.4 pg (26.0-34.0); MCHC 33.5 g/dL (31.0-37.0); MCV 93.9 fL (80.0-100.0); MEAN PLATELET VOLUME 9.7 fL (7.4-10.4); RBC 2.45 10x6/uL (4.20-6.10); RDW 12.3 % (11.5-14.5); WBC 9.1 10x3/uL (4.8-10.8)
[2017-11-04 06:44] LABS: ALBUMIN 2.4 g/dL (3.4-5.0); ANION GAP 11.2 mmol/L (8-16); BILIRUBIN - TOTAL 0.74 mg/dL (0.2-1.3); CALCIUM 7.7 mg/dL (8.5-10.1); CARBON DIOXIDE 30.4 mmol/L (21.0-32.0); POTASSIUM - SERUM 3.6 mmol/L (3.5-5.1); PROTEIN - SERUM 5.3 g/dL (6.4-8.2)
[2017-11-05] VITALS (24 sets, daily range): BP systolic 105–150; BP diastolic 49–83
[2017-11-05 07:05] LABS: HEMATOCRIT 24.1 % (42.0-54.0); HEMOGLOBIN 8.1 g/dL (13.5-17.5); MCH 31.6 pg (26.0-34.0); MCHC 33.6 g/dL (31.0-37.0); MCV 94.1 fL (80.0-100.0); MEAN PLATELET VOLUME 9.5 fL (7.4-10.4); RBC 2.56 10x6/uL (4.20-6.10); RDW 12.3 % (11.5-14.5); WBC 10.5 10x3/uL (4.8-10.8)
[2017-11-05 07:45] LABS: ALBUMIN 2.3 g/dL (3.4-5.0); ANION GAP 5.4 mmol/L (8-16); BILIRUBIN - TOTAL 0.77 mg/dL (0.2-1.3); CALCIUM 7.8 mg/dL (8.5-10.1); CARBON DIOXIDE 31.3 mmol/L (21.0-32.0); CREATININE - SERUM 1.7 mg/dL (0.6-1.3); POTASSIUM - SERUM 3.7 mmol/L (3.5-5.1); PROTEIN - SERUM 5.2 g/dL (6.4-8.2)
[2017-11-06] VITALS (23 sets, daily range): BP systolic 108–151; BP diastolic 39–81
[2017-11-06 06:08] LABS: HEMATOCRIT 26.2 % (42.0-54.0); HEMOGLOBIN 8.7 g/dL (13.5-17.5); MCH 31.3 pg (26.0-34.0); MCHC 33.2 g/dL (31.0-37.0); MCV 94.2 fL (80.0-100.0); MEAN PLATELET VOLUME 9.4 fL (7.4-10.4); RBC 2.78 10x6/uL (4.20-6.10); RDW 12.4 % (11.5-14.5); WBC 13.1 10x3/uL (4.8-10.8)
[2017-11-06 06:29] LABS: ANION GAP 12.7 mmol/L (8-16); CALCIUM 7.9 mg/dL (8.5-10.1); CARBON DIOXIDE 27.1 mmol/L (21.0-32.0); CREATININE - SERUM 1.6 mg/dL (0.6-1.3); POTASSIUM - SERUM 3.8 mmol/L (3.5-5.1)
[2017-11-07] VITALS (16 sets, daily range): BP systolic 105–146; BP diastolic 45–77
[2017-11-07 05:53] LABS: HEMATOCRIT 28.7 % (42.0-54.0); HEMOGLOBIN 9.7 g/dL (13.5-17.5); MCH 31.2 pg (26.0-34.0); MCHC 33.8 g/dL (31.0-37.0); MCV 92.3 fL (80.0-100.0); MEAN PLATELET VOLUME 9.3 fL (7.4-10.4); RBC 3.11 10x6/uL (4.20-6.10); RDW 12.5 % (11.5-14.5); WBC 15.8 10x3/uL (4.8-10.8)
[2017-11-07 05:59] LABS: CALCIUM 7.9 mg/dL (8.5-10.1); CARBON DIOXIDE 24.8 mmol/L (21.0-32.0); CREATININE - SERUM 1.7 mg/dL (0.6-1.3); POTASSIUM - SERUM 3.8 mmol/L (3.5-5.1)
[2017-11-07] MEDS ORDERED: HEMOCYTE PLUS C1 CAP PO (09:17)
[2017-11-07] MEDS ORDERED: CORDARONE200 MG PO (09:17)
[2017-11-07] MEDS ORDERED: PLAVIX75 MG PO (09:17)
[2017-11-07] MEDS ORDERED: COLACE100 MG PO (09:20)
[2017-11-07] MEDS ORDERED: MILK OF MAGNESI30 ML PO (09:21)
[2017-11-07] MEDS ORDERED: FUROSEMIDE40 MG PO (09:23)
[2017-11-07] MEDS ORDERED: KLOR-CON M2020 MEQ PO (09:23)
[2017-11-07] MEDS ORDERED: PERCOCET 10/3251 TA1 PO (09:25)
== END 2017-11-07 14:40 | disposition home or self-care (01) | DRG 233 ==
LOC: D.ER 11:16 → D.EDHOLD 13:50 → D.M2 13:50 → D.CVICU 13:50 → D.M2 14:10 → D.CVICU 10-30 13:09
PROVIDERS: Family Medicine; Internal Medicine Cardiovascular Disease
PROC: B2151ZZ Fluoroscopy of Left Heart using Low Osmolar Contrast (ICD-10-PCS; 2017-10-27)
PROC: 4A023N7 Measurement of Cardiac Sampling and Pressure, Left Heart, Percutaneous Approach (ICD-10-PCS; 2017-10-27)
PROC: B2111ZZ Fluoroscopy of Multiple Coronary Arteries using Low Osmolar Contrast (ICD-10-PCS; principal; 2017-10-27 09:00)
PROC: 02100ZC Bypass Coronary Artery, One Artery from Thoracic Artery, Open Approach (ICD-10-PCS; 2017-10-30)
PROC: 021009W Bypass Coronary Artery, One Artery from Aorta with Autologous Venous Tissue, Open Approach (ICD-10-PCS; 2017-10-30)
PROC: 06BP0ZZ Excision of Right Saphenous Vein, Open Approach (ICD-10-PCS; 2017-10-30)
PROC: 5A1221Z Performance of Cardiac Output, Continuous (ICD-10-PCS; 2017-10-30)
PROC: B245ZZ4 Ultrasonography of Left Heart, Transesophageal (ICD-10-PCS; 2017-10-30)
DX: I25.119 Atherosclerotic heart disease of native coronary artery with unspecified angina pectoris (principal); I46.2 Cardiac arrest due to underlying cardiac condition; I48.92 Unspecified atrial flutter; N17.9 Acute kidney failure, unspecified; D62 Acute posthemorrhagic anemia; I25.82 Chronic total occlusion of coronary artery; I10 Essential (primary) hypertension; R55 Syncope and collapse; N99.0 Postprocedural (acute) (chronic) kidney failure; Y83.8 Other surgical procedures as the cause of abnormal reaction of the patient, or of later complication, without mention of misadventure at the time of the procedure; K59.00 Constipation, unspecified

== ENCOUNTER → 2017-11-12 10:22 | Outpatient (CLI) | payer MEDICARE, BC ==
[2017-10-30 09:51] VITALS: BMI 26.0
[~2017-11-12 10:22] MED LIST: BAYER CHEWABLE81 MG PO; COLACE100 MG PO; CORDARONE200 MG PO; FOLBIC RF TABL1 EACH PO; FUROSEMIDE40 MG PO; HEMOCYTE PLUS C1 CAP PO; KLOR-CON M2020 MEQ PO; LEVAQUIN750 MG PO; MILK OF MAGNESI30 ML PO; PERCOCET 10/3251 TA1 PO; PLAVIX75 MG PO; PRAVACHOL20 MG PO; PRINIVIL20 MG PO
[2017-11-12 11:05] LABS: BASOPHILS 0.3 % (0-2); HEMATOCRIT 30.6 % (42.0-54.0); HEMOGLOBIN 9.9 g/dL (13.5-17.5); IMMATURE GRANULOCYTES 0.5 % (0-5); LYMPHOCYTES 7.6 % (15-50); MCH 30.3 pg (26.0-34.0); MCHC 32.4 g/dL (31.0-37.0); MCV 93.6 fL (80.0-100.0); MEAN PLATELET VOLUME 8.4 fL (7.4-10.4); MONOCYTES 5.7 % (2-11); NEUTROPHILS 84.9 % (40-80); PLATELET COUNT 671 10x3/uL (130-400); RBC 3.27 10x6/uL (4.20-6.10); RDW 12.7 % (11.5-14.5); WBC 11.6 10x3/uL (4.8-10.8)
[2017-11-12 11:24] LABS: ALBUMIN 3.2 g/dL (3.4-5.0); ANION GAP 12.4 mmol/L (8-16); BILIRUBIN - TOTAL 0.5 mg/dL (0.2-1.3); CALCIUM 8.5 mg/dL (8.5-10.1); CARBON DIOXIDE 26.2 mmol/L (21.0-32.0); CREATININE - SERUM 1.9 mg/dL (0.6-1.3); POTASSIUM - SERUM 4.6 mmol/L (3.5-5.1); PROTEIN - SERUM 6.3 g/dL (6.4-8.2)
== END | disposition home or self-care (01) ==
LOC: D.LAB 10:22
PROVIDERS: Internal Medicine Cardiovascular Disease
DX: I25.10 Atherosclerotic heart disease of native coronary artery without angina pectoris (principal); D64.9 Anemia, unspecified

== ENCOUNTER → 2017-11-20 09:34 | Outpatient (CLI) | payer MEDICARE, BC ==
[2017-10-30 09:51] VITALS: BMI 26.0
[2017-11-20 10:10] LABS: ALBUMIN 3.2 g/dL (3.4-5.0); ANION GAP 13.2 mmol/L (8-16); BILIRUBIN - TOTAL 0.47 mg/dL (0.2-1.3); CALCIUM 8.8 mg/dL (8.5-10.1); CARBON DIOXIDE 26.7 mmol/L (21.0-32.0); POTASSIUM - SERUM 4.9 mmol/L (3.5-5.1); PROTEIN - SERUM 6.7 g/dL (6.4-8.2)
[2017-11-20 10:16] LABS: HEMATOCRIT 31.2 % (42.0-54.0); HEMOGLOBIN 10.1 g/dL (13.5-17.5); MCH 30.4 pg (26.0-34.0); MCHC 32.4 g/dL (31.0-37.0); MEAN PLATELET VOLUME 8.8 fL (7.4-10.4); RBC 3.32 10x6/uL (4.20-6.10); RDW 13.1 % (11.5-14.5); WBC 7.5 10x3/uL (4.8-10.8)
== END | disposition home or self-care (01) ==
LOC: D.RAD 09:34
PROVIDERS: Internal Medicine Cardiovascular Disease
DX: J90 Pleural effusion, not elsewhere classified (principal); D64.9 Anemia, unspecified

== ENCOUNTER → 2017-11-26 12:02 | Outpatient (CLI) | payer MEDICARE, BC ==
[2017-10-30 09:51] VITALS: BMI 26.0
== END | disposition home or self-care (01) ==
LOC: D.LABREF 12:02
DX: S81.809A Unspecified open wound, unspecified lower leg, initial encounter (principal); X58.XXXA Exposure to other specified factors, initial encounter

== ENCOUNTER 2017-12-05 08:32 | Day surgery (SDC) | payer MEDICARE, BC ==
[~2017-12-05] VITALS: Ht 180.3 cm; Wt 78.0 kg
--- NOTE | ~2017-12-05 | OP ---
PATIENT NAME: KEN PEÑALOZA MEDICAL RECORD: [id number] :40 LOCATION:D.OPS ADMISSION DATE: SURGEON: AMINA WILLIAM MD DATE OF OPERATION: 12/05/2017 SURGEON: Amina William MD ANESTHESIA: General, Dr. Bartlett. OPERATION PERFORMED: 1. Incision and drainage of seroma, right upper thigh. 2. Incision and drainage of sinus tract, right lower leg. PREOPERATIVE DIAGNOSIS: Abscess, right lower leg. POSTOPERATIVE DIAGNOSES: Sinus tract, right lower leg. Seroma, right upper leg. Cultures were taken for cultures from the upper and lower incisions separately. DESCRIPTION OF PROCEDURE: After informed consent and adequate preoperative medication evaluation, the patient was brought to the operating room, placed on the table in the supine position. After induction of general anesthesia and application of appropriate monitoring devices, the right leg was prepped and draped in a sterile field, utilizing Betadine scrub, alcohol, and Betadine solution. Betadine-impregnated drape was also used. The upper seroma was palpated and an incision made in the skin to the subcutaneous tract. Cultures were taken. A Idalmis drain was placed in the tract and sutured to the skin. The lower leg sinus tract was probed and connected to the lowest incision. An incision was made at that point and the tract completed. This was irrigated with copious amounts of normal saline. A quarter inch Hankinson was tracked from the upper to lower incision and sutured to the skin at both ends. The wound was irrigated. The instrument count and sponge counts were correct times 2. The wounds were dressed with 4 x 4s and Surgifix. The patient tolerated the procedure well and transferred to the postanesthesia recovery in satisfactory condition. TRANSINT:[id number] Voice Confirmation ID: [id number] DOCUMENT ID: [id number] AMINA WILLIAM MD at 1234 CC: [id number] DICTATION DATE: 12/05/17 1304 CHIEF ELECTRICIAN: 12/05/17 1420 [facility] 12/05/[address] [address]
--- NOTE | ~2017-12-05 | HP ---
PATIENT: KEN PEÑALOZA MEDICAL RECORD: [id number] ACCOUNT: [id number] LOCATION:D.OPS : 40 ADMISSION DATE: 12/05/17 PCP: PAUL PHAM MD HISTORY AND PHYSICAL EXAMINATION KEN Kilgore (77yo, M) ID# [id number]. 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 Please verify coverage and all member demographic information. Chief Complaint Wound check Followup: Coronary atherosclerosis Patient's Care Team Referring Provider (): REFUGIO SANCHEZ: [address] [place] [phone], , Patient's Pharmacies [facility] (ERX): [address] [place] [id number], , Vitals None recorded. Allergies Allergies not reviewed (last reviewed 11/24/2017) NKDAMedications Reviewed Medications amiodarone 200 mg tablet Take 1 tablet(s) twice a day by oral route.11/07/17 [facility]Low11/07[facility]17 [facility]ol[facility] RF 2 mg-1.13 mg-25 mg tablet Take by oral route.11/07/17 [facility] HospitalHemocyte-Plus 106 mg iron-1 mg capsule Take 1 capsule(s) every day by oral route.11/07/17 [facility]Keflex 500 mg capsule Take 1 capsule(s) 4 times a day by oral route for 10 days.11/24/17 prescribedPaul Pham MDKlor-Con 20 mEq tablet,extended release Take 1 tablet(s) every day by oral route.11/07/17 [facility]-Con M20 mEq tablet,extended release Take 1 tablet(s) every day by oral route.11/13/17 Maria Isabel Pham MDLasix 40 mg tablet Take 1 tablet(s) every day by oral route for 7 days.11/13/17 prescribedJAMIL Llanosilk of Magnesia 400 mg/5 mL oral suspension Take 30 mL every day by oral route.11/07/17 [facility] PauloxyCODONE-acetaminophen 5 mg-325 mg tablet Take 1 tablet(s) every 4 hours by oral route as needed.11/07/17 [facility] PaulPlavix 75 mg tablet Take 1 tablet(s) every day by oral route.11/13/17 Bella Grimesravastatin 20 mg tablet Take 1 tablet(s) every day by oral route.11/07/17 [facility] HospitalProblems Reviewed Problems Coronary atherosclerosis - Onset: 11/07/2017 HISTORY AND PHYSICAL [id number] KEN PEÑALOZA Family History Family History not reviewed (last reviewed 11/24/2017) parent with cancer, sibling with hypertension, natural child with hypertensionSocial History Social History not reviewed (last reviewed 11/24/2017) Cardiology Family history of heart disease?: N Smoking Status: Never smoker High Cholesterol: Y High blood pressure: Y Exercise level: Moderate Overweight: N Obese: N Diabetes: N Alcohol intake: None Surgical History Surgical History not reviewed (last reviewed 11/24/2017) CABG - 10/30/2017 Past Medical History Past Medical History not reviewed (last reviewed 11/24/2017) Angina: Y Chest Pain: Y Heart Disease: Y Hyperlipidemia: Y Hypertension: Y Documents for Discussion N/A Screening None recorded. HPI status post coronary bypass Wound check right leg Physical Exam Patient is a 77-year-old male. Post Operative Exam: General Appearance: no swelling, tenderness, or warmth and wound clean and dry, a ppropriate range of motion, and neurovascular intact; 2 lower incisions right leg gram-negative sreedhar Incisions look okay but draining Wound explored. Assessment / Plan status post coronary bypass 1. 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
[~2017-12-05 08:32] MED LIST changes: -LEVAQUIN750 MG PO
[2017-12-05 09:02] LABS: HEMATOCRIT 31.9 % (42.0-54.0); HEMOGLOBIN 10.3 g/dL (13.5-17.5); MCH 29.9 pg (26.0-34.0); MCHC 32.3 g/dL (31.0-37.0); MCV 92.5 fL (80.0-100.0); MEAN PLATELET VOLUME 8.6 fL (7.4-10.4); RBC 3.45 10x6/uL (4.20-6.10); RDW 13.5 % (11.5-14.5); WBC 8.7 10x3/uL (4.8-10.8)
[2017-12-05 09:11] LABS: ANION GAP 11.1 mmol/L (8-16); CALCIUM 8.5 mg/dL (8.5-10.1); CARBON DIOXIDE 26.1 mmol/L (21.0-32.0); POTASSIUM - SERUM 4.2 mmol/L (3.5-5.1)
[2017-12-05 09:14] LABS: APPEARANCE CLEAR (CLEAR); COLOR YELLOW (YELLOW); GLUCOSE NEGATIVE (NEGATIVE); KETONE NEGATIVE (NEGATIVE); NITRITE NEGATIVE (NEGATIVE); PROTEIN TRACE mg/dL (NEGATIVE); SPECIFIC GRAVITY 1.025 (1.005-1.020)
[2017-12-05 09:14] LABS: INR 1.11 (0.85-1.17); PROTIME 13.9 SECONDS (11.6-15.0)
[2017-12-05 09:15] LABS: APTT 36.7 SECONDS (22.8-39.4)
[2017-12-05 09:15] LABS: BILIRUBIN NEGATIVE (NEGATIVE); UROBILINOGEN NORMAL (NORMAL)
[2017-12-05] MEDS ORDERED: LEVAQUIN750 MG PO (10:11)
[2017-12-05 10:17] VITALS: BP 139/60; Ht 180.3 cm; Wt 78.0 kg
== END 2017-12-05 14:45 | disposition home or self-care (01) ==
LOC: D.OPS 08:32
PROVIDERS: Internal Medicine Cardiovascular Disease
DX: L76.34 Postprocedural seroma of skin and subcutaneous tissue following other procedure (principal); L02.415 Cutaneous abscess of right lower limb; E78.00 Pure hypercholesterolemia, unspecified; I11.9 Hypertensive heart disease without heart failure; I25.10 Atherosclerotic heart disease of native coronary artery without angina pectoris; Z01.812 Encounter for preprocedural laboratory examination

== ENCOUNTER → 2018-10-01 10:55 | Outpatient (CLI) | payer MEDICARE, BC ==
[2017-12-05 10:17] VITALS: BMI 24.0
[~2018-10-01 10:55] MED LIST changes: +LEVAQUIN750 MG PO
--- NOTE | 2018-10-07 10:00 | EC ---
PATIENT:KEN PEÑALOZA DATE OF SERVICE: 10/01/18 SEX: M MEDICAL RECORD: [id number] DATE OF : 40 LOCATION:[facility] AGE OF PATIENT: 78 ADMISSION DATE: 10/01/18 REFERRING PHYSICIAN: INTERPRETING PHYSICIAN: ANNA WEBB MD ECHOCARDIOGRAM REPORT ECHO CHARGES 4 ECHO COMPLETE Date: 10/01/18 CLINICAL DIAGNOSIS: CAD/MITRAL/TRICSUPID REGURG HX OF CABG ECHOCARDIOGRAPHIC MEASUREMENTS (adult normal given) AC root (d.<3.7cm) 4.0 cm LV Septum d (<1.2 cm> 1.5 cm Valve Excursion 2.0 cm LV Septum (systole) 1.9 cm Left Atria (s.<4.0cm> 4.1 cm LVPW d(<1.2cm) 1.6 cm RV (d.<2.3cm) 4.7 cm LVPW (sytole) 1.7 cm LV diastole(<5.6CM) 4.2 cm MV E-F(>70mm/sec) cm LV systole 3.0 cm LVOT Diameter 1.9 cm MV exc.(>10mm) 1.2 cm Est.ejection fraction (50-75%) % DOPPLER: LVIT cm/sec A 50.0 cm/sec E 75.0 cm/sec LA cm/sec RVSP 36 mmHg LVOT 77 cm/sec AOP1/2T m/s Asc. Ao 101 cm/sec RVOT 65 cm/sec RA cm/sec PA 96 cm/sec AV Gradient Peak 4.11 mmHg AV Mean 2.02 mmHg AV Area 2.4 cm MV Gradient Peak 3.43 mmHg MV Mean 1.91 mmHg MV Area cm COMMENTS: Calender Roll Operator: Thuan MONIQUE Commercial Development Manager: 1 Dr. Webb TAPE# PACS Pericardial Effusion N DATE OF SERVICE: 10/01/2018 FINDINGS: 1. Left ventricular chamber size is within normal limits. Left ventricular systolic function is normal. Overall ejection fraction is estimated at 55%. 2. Left atrium is enlarged at 4.1 cm. Right atrium and right ventricular chamber sizes are as well mildly dilated. 3. Valvular structures have normal structure and motion. 4. Doppler interrogation reveals mild mitral regurgitation and mild tricuspid regurgitation. No other valvular insufficiency or stenosis. Pulmonary systolic ECHOCARDIOGRAM REPORT [id number] JH,KEN pressure is estimated at 36 mmHg. 5. No evidence of pericardial effusion or left ventricular thrombus. TRANSINT:[id number] Voice Confirmation ID: [id number] DOCUMENT ID: [id number] ANNA WEBB MD at 1000 CC: [id number] DICTATION DATE: 10/05/18 1039 PLAN MANAGER: 10/05/18 1301 DEP CLI 10/01/18 [place] [id number] [place] [id number]
== END | disposition home or self-care (01) ==
LOC: D.HCCARDIO 10:55
PROVIDERS: ATTEND Internal Medicine Interventional Cardiology
DX: I25.10 Atherosclerotic heart disease of native coronary artery without angina pectoris (principal)

== ENCOUNTER 2018-10-19 21:57 | Observation (INO) | payer MEDICARE, BC ==
[~2018-10-19] VITALS: Ht 180.3 cm; Wt 83.6 kg
--- NOTE | ~2018-10-19 | EC ---
PATIENT:KEN PEÑALOZA DATE OF SERVICE: 10/20/18 SEX: M MEDICAL RECORD: [id number] DATE OF : 40 LOCATION:D.M2 D.210 AGE OF PATIENT: 78 ADMISSION DATE: 10/20/18 REFERRING PHYSICIAN: INTERPRETING PHYSICIAN: ANNA WEBB MD ECHOCARDIOGRAM REPORT ECHO CHARGES 4 ECHO COMPLETE Date: 10/20/18 CLINICAL DIAGNOSIS: DIZZINESS HX CAD/CABG ECHOCARDIOGRAPHIC MEASUREMENTS (adult normal given) AC root (d.<3.7cm) 4.3 cm LV Septum d (<1.2 cm> 1.2 cm Valve Excursion 1.6 cm LV Septum (systole) 1.4 cm Left Atria (s.<4.0cm> 3.5 cm LVPW d(<1.2cm) 1.7 cm RV (d.<2.3cm) 4.2 cm LVPW (sytole) 1.8 cm LV diastole(<5.6CM) 5.1 cm MV E-F(>70mm/sec) cm LV systole 3.8 cm LVOT Diameter 2.0 cm MV exc.(>10mm) cm Est.ejection fraction (50-75%) % DOPPLER: LVIT cm/sec A 89.0 cm/sec E 79.0 cm/sec LA cm/sec RVSP 17 mmHg LVOT 102 cm/sec AOP1/2T m/s Asc. Ao 115 cm/sec RVOT 106 cm/sec RA cm/sec PA 133 cm/sec AV Gradient Peak 5.33 mmHg AV Mean 2.64 mmHg AV Area 2.8 cm MV Gradient Peak 4.74 mmHg MV Mean 2.15 mmHg MV Area cm COMMENTS: Internal Corrosion Specialist: Thuan MONIQUE Preparer: 1 Dr. Webb TAPE# PACS Pericardial Effusion N DATE OF SERVICE: 10/20/2018 FINDINGS: 1. Left ventricular chamber size is within normal limits. Left ventricular systolic function is normal. Overall ejection fraction estimated at 55%. 2. Left atrium is within normal limits at 3.5 cm. Right atrium and right ventricle chamber sizes are [id number] dilated. 3. Valvular structures have normal structure and motion. 4. Doppler interrogation only reveals mild mitral regurgitation, no other valvular insufficiency or stenosis. Pulmonary systolic pressure is estimated at ECHOCARDIOGRAM REPORT [id number] KEN PEÑALOZA 70 mmHg. 5. No evidence of pericardial effusion or left ventricular thrombus. TRANSINT:[id number] Voice Confirmation ID: [id number] DOCUMENT ID: [id number] ANNA WEBB MD CC: [id number] DICTATION DATE: 10/20/18 1601 ENVIRONMENTAL CONSERVATION PROFESSOR: 10/20/18 1616 ADM IN [facility] [address] [place] [address]
--- NOTE | ~2018-10-19 | HP ---
PATIENT: KEN ABBOTT MEDICAL RECORD: [id number] ACCOUNT: [id number] LOCATION:[address] : 40 ADMISSION DATE: 10/20/18 PCP: JEFFREY PEACOCK DO HISTORY AND PHYSICAL EXAMINATION DIAGNOSES: 1. Hypertensive urgency. 2. Hypertension. 3. Hyperlipidemia. 4. Coronary artery disease. 5. Status post coronary artery bypass graft surgery. 6. Angina. HISTORY OF PRESENT ILLNESS: Mr. Abbott has been having increasing blood pressures with systolic blood pressures in the 190-200 range. Yesterday, he got short of breath and anginal discomfort with this as well as a headache. He presented to the Emergency Room, his systolic blood pressure was in the 220 range. He had presented to our office with the complaints of increasing blood pressure, was placed on lisinopril 10 mg a day as well as hydralazine p.r.n., he had been taking the multiple doses of the hydralazine. PHYSICAL EXAMINATION: GENERAL APPEARANCE: Well-nourished, well-developed, appears stated age. Level of distress, comfortable. PSYCHIATRIC: Mental status, alert, normal affect. Orientation, oriented to time, place and person. EYES: Lids and conjunctiva, noninjected. No discharge, no pallor. ENT: Lips, teeth, gums, normal dentition. Oropharynx, no cyanosis, no pallor. NECK: Carotid arteries, bilateral normal upstroke, no bruits, no thrills. JUGULAR VEINS: No jugular venous pressure or distention. CERVICAL LYMPH NODES: Nontender, nonenlarged. THYROID: Not enlarged. Nontender. No nodules. LUNGS: Respiratory effort, unlabored. CHEST: Normal curvature. No thoracic deformity. No chest wall tenderness. Percussion, resonant. Auscultation, clear. No wheezes, no rales, no rhonchi. CARDIOVASCULAR: Precordial exam, nondisplaced. No heaves or pericardial thrills. Rate and rhythm, regular. Heart sounds, normal S1, normal S2. No S3, no gallop, no rub. Systolic murmur, not heard. Diastolic murmur, not heard. EXTREMITIES: No cyanosis, no edema. Peripheral pulses, full and equal in all extremities, except as noted. No bruits appreciated. ABDOMEN: Soft, nondistended. Normal aorta. No bruit. Nontender. No masses. Liver, nontender, no hepatomegaly. Spleen, nontender, no splenomegaly. MUSCULOSKELETAL: No joint tenderness. No joint swelling. No erythema. NEUROLOGICAL: Normal gait, normal strength, normal tone. SKIN: Warm and dry. OVERALL IMPRESSION: Hypertension out of control with hypertensive urgency. We will increase the lisinopril to 20/12.5 with hydrochlorothiazide b.i.d. and add Norvasc 5 mg b.i.d. as well. TRANSINT:[id number] Voice Confirmation ID: [id number] DOCUMENT ID: [id number] HISTORY AND PHYSICAL [id number] KEN ABBOTT JEFFREY MD CC: [id number] DICTATION DATE: 10/20/18729 PSYCHIATRIC SECRETARY: 10/20/18 0758 ADM IN [place] [id number] [place] [id number]
[2018-10-19 22:02] VITALS: Ht 180.3 cm; Wt 83.6 kg
[2018-10-19] MEDS ORDERED: HYDRALAZINE HCL50 MG PO (22:04)
[2018-10-19] MEDS ORDERED: LISINOPRIL10 MG PO (22:05)
[2018-10-19 22:37] LABS: BASOPHILS 0.2 % (0-2); EOSINOPHILS 0.5 % (0-7); HEMOGLOBIN 13.8 g/dL (13.5-17.5); IMMATURE GRANULOCYTES 0.4 % (0-5); LYMPHOCYTES 20.5 % (15-50); MCH 29.2 pg (26.0-34.0); MCHC 33.7 g/dL (31.0-37.0); MCV 86.7 fL (80.0-100.0); MEAN PLATELET VOLUME 9.7 fL (7.4-10.4); MONOCYTES 7.7 % (2-11); NEUTROPHILS 70.7 % (40-80); RBC 4.73 10x6/uL (4.20-6.10); RDW 13.9 % (11.5-14.5); WBC 8.4 10x3/uL (4.8-10.8)
[2018-10-19 22:39] LABS: PLATELET COUNT 254 10x3/uL (130-400)
--- NOTE | 2018-10-19 22:44 | NUR ---
PT RETURNED FROM CT. PT VOMITING ON RETURN TO ED. EDP NOTIFIED.
[2018-10-19 22:45] LABS: APTT 32.8 SECONDS (22.8-39.4)
[2018-10-19 22:46] LABS: INR 0.97 (0.85-1.17); PROTIME 12.4 SECONDS (11.6-15.0)
[2018-10-19 22:48] VITALS: BP 200/99
[2018-10-19 22:53] LABS: ALBUMIN 3.9 g/dL (3.4-5.0); ALKALINE PHOSPHATASE 74 U/L (46-116); ALT (SGPT) 35 U/L (10-68); BILIRUBIN - TOTAL 0.46 mg/dL (0.2-1.3); CALC OSMOLALITY 287 mosm/kg (275-300); CALCIUM 9.1 mg/dL (8.5-10.1); CARBON DIOXIDE 25.4 mmol/L (21.0-32.0); CHLORIDE - SERUM 107 mmol/L (98-107); CREATININE - SERUM 1.5 mg/dL (0.6-1.3); GLUCOSE 103 mg/dL (74-106); POTASSIUM - SERUM 4.1 mmol/L (3.5-5.1); PROTEIN - SERUM 7.1 g/dL (6.4-8.2); SODIUM 142 mmol/L (136-145); UREA NITROGEN 27 mg/dL (7-18); eGFR NON AFRICAN AMERICAN 48 mL/min (90-120)
[2018-10-19 23:00] VITALS: BP 154/82
[2018-10-19 23:02] LABS: CKMB 2.2 U/L (0.0-3.6); CREATINE KINASE 100 UL (21-232)
[2018-10-19 23:11] LABS: TROPONIN-I < 0.017 ng/mL (0.000-0.060)
[2018-10-19 23:30] VITALS: BP 148/75
--- NOTE | 2018-10-19 23:30 | NUR ---
URINE SPECIMEN GIVEN TO LAB. PT SITTING UP ON BED. PT DENIES NAUSEA. PT FAMILY AT BEDSIDE.
[2018-10-19 23:52] LABS: APPEARANCE CLEAR (CLEAR); BILIRUBIN NEGATIVE (NEGATIVE); COLOR YELLOW (YELLOW); GLUCOSE NEGATIVE (NEGATIVE); KETONE NEGATIVE (NEGATIVE); NITRITE NEGATIVE (NEGATIVE); PROTEIN NEGATIVE (NEGATIVE); SPECIFIC GRAVITY 1.015 (1.005-1.020); UROBILINOGEN NORMAL (NORMAL)
[2018-10-20] VITALS: BP 164/86
--- NOTE | 2018-10-20 00:25 | NUR ---
PT SITTING UPRIGHT ON BED. PT FAMILY AT BEDSIDE. PT DENIES PAIN OR NAUSEA AT THIS TIME.
[2018-10-20 00:30] VITALS: BP 171/90
--- NOTE | 2018-10-20 01:29 | NUR ---
PT RESTING ON BED. NO S/S OF ACUTE DISTRESS NOTED.
--- NOTE | 2018-10-20 02:00 | NUR ---
LLUVIA BARKSDALE AT BEDSIDE
--- NOTE | 2018-10-20 02:38 | NUR ---
PT C/O STOREY. APOLONIA PALMER APRN CONTACTED. VERBAL ORDER FOR TYLENOL 650MG Q6PRN GIVEN.
[2018-10-20] MEDS ORDERED: HYDRALAZINE HCL50 MG PO (03:06)
[2018-10-20] MEDS ORDERED: FOLTX TABLET1 EACH PO (03:07)
[2018-10-20 05:15] LABS: BASOPHILS 0.1 % (0-2); EOSINOPHILS 0 % (0-7); HEMATOCRIT 38.7 % (42.0-54.0); HEMOGLOBIN 12.9 g/dL (13.5-17.5); IMMATURE GRANULOCYTES 0.2 % (0-5); LYMPHOCYTES 6.9 % (15-50); MCH 29.1 pg (26.0-34.0); MCHC 33.3 g/dL (31.0-37.0); MCV 87.2 fL (80.0-100.0); MEAN PLATELET VOLUME 9.8 fL (7.4-10.4); MONOCYTES 3.6 % (2-11); NEUTROPHILS 89.2 % (40-80); PLATELET COUNT 227 10x3/uL (130-400); RBC 4.44 10x6/uL (4.20-6.10); RDW 14.2 % (11.5-14.5); WBC 9.7 10x3/uL (4.8-10.8)
[2018-10-20 05:46] LABS: CALC OSMOLALITY 286 mosm/kg (275-300); CARBON DIOXIDE 25.7 mmol/L (21.0-32.0); CHLORIDE - SERUM 106 mmol/L (98-107); CKMB 2.1 U/L (0.0-3.6); CREATINE KINASE 79 UL (21-232); CREATININE - SERUM 1.4 mg/dL (0.6-1.3); GLUCOSE 124 mg/dL (74-106); PHOSPHOROUS 3.1 mg/dL (2.5-4.9); POTASSIUM - SERUM 4.2 mmol/L (3.5-5.1); PRO BNP 1331 pg/mL (0-450); SODIUM 141 mmol/L (136-145); TROPONIN-I < 0.017 ng/mL (0.000-0.060); UREA NITROGEN 26 mg/dL (7-18); eGFR NON AFRICAN AMERICAN 52 mL/min (90-120)
[2018-10-20 07:55] VITALS: BP 153/72
--- NOTE | 2018-10-20 09:05 | NUR ---
AM MEDS GIVEN AT THIS TIME. PT A/O X4, RESP EVEN AND UNLABORED ON RA. LT FA IV SL. PT DENIES ANY NEEDS AT THIS TIME. CALL LIGHT IN REACH, NAD NOTED,W ILL CONTINUE PLAN OF CARE.
[2018-10-20 12:38] LABS: CREATINE KINASE 102 UL (21-232)
[2018-10-20 12:41] LABS: TROPONIN-I < 0.017 ng/mL (0.000-0.060)
[2018-10-20 15:57] VITALS: BP 125/85
--- NOTE | 2018-10-20 16:27 | NUR ---
SPOKE WITH AND HE GAVE ORDERS THAT DUE TO PATIENTS BP IS UNDER CONTROL, PATIENT CAN DISCHARGE TO HOME JUST CALL IN THE NEW MEDICATIONS INTO HIS PHARMACY OF CHOICE. PAGE NEREYDA FIGUEROA AT THIS TIME TO OBTAIN DISCHARGE ORDERS.
--- NOTE | 2018-10-20 16:29 | NUR ---
WAITING CALL BACK FROM HENRY FOR DISCHARGE ORDERS.
[2018-10-20] MEDS ORDERED: LISINOPRIL10 MG PO (16:52)
[2018-10-20] MEDS ORDERED: NORVASC5 MG PO (16:52)
--- NOTE | 2018-10-20 17:56 | NUR ---
CALLED [facility] AND SPOKE WITH GABY, AND CORRECTED THE PRESCRIPTION THAT WAS SENT OVER. PATEINT WAS TO RECEIVE COMBINATION DRUG LISINIOPRIL/HCZT 20/12.5MG PO BID #60, NO REFILSS.
--- NOTE | 2018-10-20 18:05 | NUR ---
20 GAUGE IV REMOVED FROM LEFT FOREARM. CATHETER TIP INTACT. TOLERATED IV REMOVAL WELL. NO BLEEDING FROM SITE. 2X2 GAUZE APPLIED AND SECURED WITH BANDAID. DISCHARGE INSTRUCTIONS PROVIDED TO PATIENT AND FAMILY. PATIENT AND FAMILY VERBALIZE UNDERSTANDING OF ALL INSTRUCTIONS PROVIDED. PATIENT REFUSED WHEELCHAIR. PATIENT LEFT UNIT AMBULATING BY CHOICE WITH FAMILY. PATIENT IN NO DISTRESS. PATIENT LEFT UNIT WITH ALL PERSONAL BELONGINGS.
--- NOTE | 2018-10-21 07:59 | MORECARE ---
CASE MANAGEMENT DISCHARGE SUMMARY PATIENT: KEN PEÑALOZA UNIT: [id number] ADM DATE: 10/20/18 AGE: 78 : 40 SEX: M ROOM/BED: D.2107 AUTHOR: SERENITY SINGH PHYSICIAN: REFERRING PHYSICIAN: DIVYA BOCANEGRA MD DATE OF SERVICE: 10/21/18 Discharge Plan Patient Name: KEN PEÑALOZA [facility] [facility] 1940 Planned Disposition: Home Anticipated Discharge Date: 10/20/18 Discharge Date: 10/20/2018 Expected LOS: 1 Initial Reviewer: [email or web address] Initial Review Date: 10/21/2018 Generated: 10/21/18 8:59 am Patient Name: KEN PEÑALOZA Page [id number] at 0759 All edits/amendments must be made on the electronic document DICTATION DATE: 10/21/18 0759 ORTHOPEDIC DENTIST: NORMA 10/21/18 0759 RPT#: [id number] DC DATE:10/20/18 STATUS: DIS IN [facility] [address] [place] [address] END OF REPORT
== END 2018-10-20 18:00 | disposition home or self-care (01) ==
LOC: D.ER 21:57 → D.M2 10-20 01:56 → OBSVTIME 10-20 01:56 → D.M2 10-20 18:00
PROVIDERS: Family Medicine; ADMIT Family Medicine Adult Medicine; ATTEND Family Medicine Adult Medicine
DX: I25.119 Atherosclerotic heart disease of native coronary artery with unspecified angina pectoris (principal); E78.5 Hyperlipidemia, unspecified; I16.0 Hypertensive urgency; I50.30 Unspecified diastolic (congestive) heart failure

== ENCOUNTER 2018-11-27 23:33 | Emergency (ER) | payer MEDICARE, BC ==
[~2018-11-27] VITALS: Ht 180.3 cm; Wt 82.7 kg
[~2018-11-27 23:33] MED LIST changes: +FOLTX TABLET1 EACH PO; +HYDRALAZINE HCL50 MG PO; +LISINOPRIL10 MG PO; +NORVASC5 MG PO
[2018-11-27 23:40] VITALS: Ht 180.3 cm; Wt 82.7 kg
[2018-11-28 00:04] LABS: BASOPHILS 0.6 % (0-2); EOSINOPHILS 1.9 % (0-7); HEMATOCRIT 37.7 % (42.0-54.0); HEMOGLOBIN 13.2 g/dL (13.5-17.5); IMMATURE GRANULOCYTES 0.2 % (0-5); LYMPHOCYTES 26.6 % (15-50); MCH 30.5 pg (26.0-34.0); MCV 87.1 fL (80.0-100.0); MEAN PLATELET VOLUME 10.1 fL (7.4-10.4); MONOCYTES 8.8 % (2-11); NEUTROPHILS 61.9 % (40-80); PLATELET COUNT 188 10x3/uL (130-400); RBC 4.33 10x6/uL (4.20-6.10); RDW 13.7 % (11.5-14.5); WBC 5.2 10x3/uL (4.8-10.8)
[2018-11-28 00:31] LABS: ALBUMIN 3.8 g/dL (3.4-5.0); ALKALINE PHOSPHATASE 78 U/L (46-116); ALT (SGPT) 35 U/L (10-68); BILIRUBIN - TOTAL 0.45 mg/dL (0.2-1.3); CALC OSMOLALITY 291 mosm/kg (275-300); CALCIUM 9.4 mg/dL (8.5-10.1); CARBON DIOXIDE 26.2 mmol/L (21.0-32.0); CHLORIDE - SERUM 108 mmol/L (98-107); CREATININE - SERUM 1.6 mg/dL (0.6-1.3); GLUCOSE 106 mg/dL (74-106); POTASSIUM - SERUM 4.8 mmol/L (3.5-5.1); PROTEIN - SERUM 7.1 g/dL (6.4-8.2); SODIUM 143 mmol/L (136-145); UREA NITROGEN 31 mg/dL (7-18); eGFR NON AFRICAN AMERICAN 45 mL/min (90-120)
[2018-11-28 00:37] LABS: CKMB 2.4 U/L (0.0-3.6); CREATINE KINASE 147 UL (21-232); THYROID STIMULATING HORMONE 6.67 uIU/mL (0.36-3.74)
[2018-11-28 00:48] LABS: TROPONIN-I < 0.017 ng/mL (0.000-0.060)
[2018-11-28] MEDS ORDERED: SYNTHROID50 MCG PO (01:18)
[2018-11-28 02:00] VITALS: BP 170/80
== END 2018-11-28 01:46 | disposition home or self-care (01) ==
LOC: D.ER 23:33
PROVIDERS: Family Medicine
DX: E03.9 Hypothyroidism, unspecified (principal); I10 Essential (primary) hypertension

== ENCOUNTER → 2019-06-17 09:13 | Outpatient (CLI) | payer MEDICARE, BC ==
[2019-05-14 23:08] VITALS: BMI 25.8
[~2019-06-17 09:13] MED LIST changes: +CATAPRES0.1 MG PO; +SYNTHROID50 MCG PO
== END | disposition home or self-care (01) ==
LOC: D.MRI 09:00
PROVIDERS: ATTEND Orthopaedic Surgery
DX: S83.242A Other tear of medial meniscus, current injury, left knee, initial encounter (principal)